=== PATIENT | male | born 1960 | race Caucasian/White ===

== ENCOUNTER → 2017-03-12 | Outpatient (REF) | payer MEDICAID ==
[2017-03-12 19:40] LABS: ALBUMIN 3.7 GM/DL (3.2-5.2); ALKALINE PHOSPHATASE 56 U/L (45-117); ALT/SGPT 33 U/L (12-78); ANION GAP 9 MEQ/L (8-16); AST/SGOT 21 U/L (15-37); BILIRUBIN,TOTAL 0.4 MG/DL (0.2-1.0); BLOOD UREA NITROGEN 19 MG/DL (7-18); CALCIUM LEVEL 8.4 MG/DL (8.5-10.1); CARBON DIOXIDE LEVEL 29 MEQ/L (21-32); CHLORIDE LEVEL 99 MEQ/L (98-107); CHOLESTEROL LEVEL 130 MG/DL (<200); CREATININE FOR GFR 1.09 MG/DL (0.70-1.30); GLOMERULAR FILTRATION RATE > 60.0 (>56); GLUCOSE, FASTING 161 MG/DL (70-105); POTASSIUM SERUM 3.8 MEQ/L (3.5-5.1); SODIUM LEVEL 137 MEQ/L (136-145); TOTAL PROTEIN 7.4 GM/DL (6.4-8.2); TRIGLYCERIDES LEVEL 249 MG/DL (<150)
== END ==
LOC: M SFHCPLAZ 15:18
PROVIDERS: ATTEND Physician Assistant
DX: I10 Essential (primary) hypertension (principal); E78.4 Other hyperlipidemia; E55.9 Vitamin D deficiency, unspecified

== ENCOUNTER → 2017-03-21 | Outpatient (REF) | payer MEDICAID ==
[~2017-03-21] MED LIST: ADV250INH INH; ALBU17IN2 INH; AMLO5TAB2 PO; ASPI81TA21 PO; ATOR80TA59 PO; DRIS50002 PO; FENO145T PO; OMEP40CA2 PO; RAMI10CA PO; RANI150T PO; XARE20TA PO
[2017-03-21 16:38] LABS: ANION GAP 7 MEQ/L (8-16); BLOOD UREA NITROGEN 11 MG/DL (7-18); CALCIUM LEVEL 9.4 MG/DL (8.5-10.1); CARBON DIOXIDE LEVEL 30 MEQ/L (21-32); CHLORIDE LEVEL 99 MEQ/L (98-107); CREATININE FOR GFR 1.18 MG/DL (0.70-1.30); GLOMERULAR FILTRATION RATE > 60.0 (>56); GLUCOSE, FASTING 98 MG/DL (70-105); POTASSIUM SERUM 4.2 MEQ/L (3.5-5.1); SODIUM LEVEL 136 MEQ/L (136-145)
== END ==
LOC: M SFHCPLAZ 13:19
PROVIDERS: ATTEND Physician Assistant
DX: R73.9 Hyperglycemia, unspecified (principal)

== ENCOUNTER 2017-05-04 17:22 | Inpatient (IN) | payer MEDICAID, OTHER ==
[~2017-05-04] VITALS: Ht 167.6 cm; Wt 64.9 kg
[2017-05-04] MEDS ORDERED: NS 500 ML IV ONE (17:30)
[2017-05-04 17:49] LABS: ABG BASE EXCESS -3.7 (-2.0-2.0); ABG HCO3 20.2 MEQ/L (22.0-26.0); ABG PARTIAL PRESSURE CO2 33.6 mmHg (35.0-45.0); ABG PARTIAL PRESSURE O2 68.6 mmHg (75.0-100.0); ABG STANDARD HCO3 21.2 MEQ/L (22.0-26.0); ABG TOTAL CO2 21.2 MEQ/L (22.0-29.0); ABG pH (ARTERIAL) 7.397 UNITS (7.350-7.450)
[2017-05-04 17:52] LABS: BASO # 0.1 K/mm3 (0.0-0.2); BASO % 0.5 % (0.0-1.0); EOS # 0.1 K/mm3 (0.0-0.50); EOS % 0.7 % (0.0-3.0); LARGE UNSTAINED CELL # 0.5 K/mm3 (0.0-0.4); LARGE UNSTAINED CELL % 4.1 % (0.0-4.0); LYMPH # 1.5 K/mm3 (1.5-4.5); LYMPH % 7.3 % (24.0-44.0); MEAN CORPUSCULAR HEMOGLOBIN 28.5 pg (27.0-33.0); MEAN CORPUSCULAR HGB CONC 31.3 g/dl (32.0-36.5); MONO # 1.3 K/mm3 (0.0-0.8); NEUTROPHILS % 77.5 % (36.0-66.0); PLATELET COUNT, AUTOMATED 143 k/mm3 (150-450); RED CELL DISTRIBUTION WIDTH 15.9 % (11.5-14.5); WHITE BLOOD COUNT 12.9 K/mm3 (4.0-10.0)
[2017-05-04 17:57] LABS: INR 1.21
[2017-05-04] MEDS ORDERED: ASPIRIN 600 MG SUPP PR STA (18:13)
[2017-05-04 18:17] LABS: METHADONE URINE NEGATIVE (NEGATIVE)
[2017-05-04 18:18] LABS: ALBUMIN 3.8 GM/DL (3.2-5.2); ALBUMIN/GLOBULIN RATIO 0.73 (1.00-1.93); ALT/SGPT 40 U/L (12-78); ANION GAP 13 MEQ/L (8-16); AST/SGOT 62 U/L (15-37); BILIRUBIN,DIRECT 0.4 MG/DL (0.0-0.2); BILIRUBIN,TOTAL 0.9 MG/DL (0.2-1.0); BLOOD UREA NITROGEN 125 MG/DL (7-18); CALCIUM LEVEL 9.6 MG/DL (8.5-10.1); CARBON DIOXIDE LEVEL 22 MEQ/L (21-32); CHLORIDE LEVEL 107 MEQ/L (98-107); CREATININE FOR GFR 3.23 MG/DL (0.70-1.30); GLOMERULAR FILTRATION RATE 21.2 (>56); GLUCOSE, FASTING 128 MG/DL (70-105); POTASSIUM SERUM 4.9 MEQ/L (3.5-5.1); SODIUM LEVEL 142 MEQ/L (136-145)
[2017-05-04] MEDS: NS 1,000 ML IV SCH (18:18)
[2017-05-04] MEDS ORDERED: ASPIRIN 300 MG SUPP PR STA (18:23)
[2017-05-04 18:30] LABS: ALKALINE PHOSPHATASE 53 U/L (45-117)
[2017-05-04] MEDS ORDERED: MANNITOL 25% 12.5 GM/50 ML VIAL (J2150) IV ONE (18:30)
--- NOTE | 2017-05-04 19:00 | REPUSA ---
CLINICAL HISTORY: Altered mental status. COMPARISON: 06/28/2009. TECHNIQUE: Multiple axial, coronal, sagittal CT images were obtained through brain without IV contra st material. COMMENTS: Note is made of an old infarct involving the right posterior parietal lobe which was seen on the prio r study. On the current study there are multiple new hypodense parenchymal areas since the prior study , most compatible with subacute infarcts. There is extensive hypodense area in right frontoparietal lobe trevor suring approximately 10 x 5 cm consistent with subacute infarct. There is apparent vasogenic edema w ith compression of right lateral ventricle. There is a 2 mm midline shift to the left. There is alexandru dence of dense right MCA sign which is compatible with subacute ischemic infarction. In addition there are multiple focal hypodense areas in the left parietal and frontal lobes. The lef t lateral ventricle is non-compressed. The study shows normal configuration of sella turcica. There are no intra or extra-axial collections. There is no evidence of hematoma formation. No hydro cephalus is present. No abnormal calcifications are present. IMPRESSION: 1. Old infarction involving the right posterior parietal lobe. 2. Subacute extensive infarct involving bilateral frontoparietal lobes as above. 3. Vasogenic edema on the right with compression on the right lateral ventricle. 2 mm midline shift to the left. 4. Consider additional evaluation with MRI. Discussed with ANALYTICAL SCIENCES DIRECTOR who immediately communicated results to Dr Cruz at 6:30 pm EST
[2017-05-04] MEDS ORDERED: dexameTHASONE 20 MG/5 ML VIAL (J1100) IV ONE (19:15)
[2017-05-04 19:34] LABS: OSMOLALITY SERUM 358 MOSM/KG (275-295)
[2017-05-04] MEDS ORDERED: cefTRIAXone SOD 1 GM in D5W MINI-BAG PLUS 50 ML IV ONE (20:15)
[2017-05-04] MEDS ORDERED: AZITHROMYCIN INJ 500 MG, VIAL MATE ADAPTER 1 EACH in D5W 250 ML IV ONE (20:15)
--- NOTE | 2017-05-04 20:20 | REPUSA ---
HISTORY: Pain and swelling. Rule out deep venous thrombosis. TECHNIQUE: Realtime sonographic images were obtained in multiple projections. FINDINGS: There is evidence of echogenic material in the left common/superficial femoral, profunda and poplite al veins with limited flow and compressibility compatible with acute DVT. The right segments including right common femoral, superficial femoral, profunda and popliteal veins demonstrate normal echo-free lumen, compressibility and flow. IMPRESSION: Findings compatible with extensive acute DVT on the left. MANJULA Espitia was informed at the conclusion of examination. Thank you for your kind referral of this patient.
[2017-05-04] MEDS ORDERED: ATROPINE SULFATE 1% OP SOLN 2 ML BTL SL PRN (21:45)
[2017-05-04] MEDS ORDERED: LORazepam 2 MG/ML VIAL (J2060) IV PRN (21:45)
[2017-05-04] MEDS ORDERED: SCOPOLAMINE 1.5 MG TRANSDERMAL TD PRN (21:45)
[2017-05-04] MEDS ORDERED: MORPHINE 2 MG/ML 1ML SYRINGE IV PRN (21:45)
[2017-05-04] MEDS ORDERED: OMEP40CA2 PO (22:09)
[2017-05-04] MEDS ORDERED: AMLO5TAB2 PO (22:09)
[2017-05-04] MEDS ORDERED: ALBU17IN2 INH (22:09)
[2017-05-04] MEDS ORDERED: XARE20TA PO (22:09)
[2017-05-04] MEDS ORDERED: DRIS50002 PO (22:09)
[2017-05-04] MEDS ORDERED: RANI150T PO (22:09)
[2017-05-04] MEDS ORDERED: ATOR80TA59 PO (22:09)
[2017-05-04] MEDS ORDERED: ASPI81TA21 PO (22:09)
[2017-05-04] MEDS ORDERED: ADV250INH INH (22:09)
[2017-05-04] MEDS ORDERED: FENO145T PO (22:09)
[2017-05-04] MEDS ORDERED: RAMI10CA PO (22:09)
--- NOTE | 2017-05-04 23:08 | HPE ---
DATE OF ADMISSION: 05/04/2017 PRIMARY CARE PROVIDER: KIRSTIN Coleman. CHIEF COMPLAINT: Unresponsive. HISTORY OF PRESENTING ILLNESS: 56-year-old male with history of alcohol abuse, factor V Leiden mutation on chronic Xarelto, who has chronic right lower extremity deep venous thrombosis (DVT) and extensive acute DVT on the left lower extremity, presents to the emergency room (ER), brought in by family due to unresponsiveness, via emergency medical services (EMS). Patient last spoke with his family about a week ago. Appeared to be doing well. No complaints of chest pain, pressure or tightness, nausea, vomiting, dizziness, lightheadedness, lower extremity edema, lower extremity pain, upper or lower extremity weakness or paresthesias, was drinking with his buddies on Friday. At that time, friends said he had fallen. They picked him up, put him on his couch in his apartment. He had episodes of apnea where he had slow breaths and then resumed normal breathing. At that time, they thought that he had passed out from drinking and left him in the apartment. According to the family, home care nurse came in today and found him unresponsive prompting EMS to be called and patient to be brought in to the emergency room. In the ER, he was found to have extensive infarct involving bilateral frontoparietal lobes approximately 10 x 5 cm consistent with subacute infarct and vasogenic edema and compression of the right lateral ventricle and a 2 mm midline shift to the left. There was evidence of a dense right MCA sign, which is compatible with subacute ischemic infarction with multiple focal hypodense areas in left parietofrontal lobes. Left lower extremity was imaged, which showed a large extensive DVT on the left. Right segments demonstrate normal echo free lumen, compressibility and flow. At this time, patient's family was informed of acute findings. He was initially given aspirin per rectum due to his CVA. Intravenous (IV) saline normal bolus 1 liter. Decadron 6 mg intravenously for vasogenic edema and mannitol 50 grams intravenously, ceftriaxone and azithromycin by the emergency room; however, family have decided that the patient would not want further treatment. Therefore, patient has been made comfort measures only, DO NOT RESUSCITATE, DO NOT INTUBATE. Medical Orders for Life-Sustaining Treatment (MOLST) form was signed by Dr. Magaly Villa, emergency room physician. Hospitalist service was called for admission for comfort measures only with patient's family in agreement and present at bedside. PAST MEDICAL HISTORY: 1. Chronic obstructive pulmonary disease (COPD). 2. DVT. 3. Alcohol abuse. 4. Hypertension. 5. Prostate cancer status post radical prostatectomy. 6. Penile implant and urine incontinence. 7. Right hilar pulmonary nodule. 8. Recurrent DVT right femoral vein through popliteal venous level. 9. Factor V Leiden heterozygote on chronic Xarelto. 10. 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 11. 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 12. Left subclavian occlusion. 13. Moderate carotid stenosis bilaterally per MRA, followed by vascular surgery. 14. Vitamin D deficiency. 15. Echocardiogram 2010 ejection fraction 65%, normal echocardiogram, no structural abnormality. 16. 2012 NST left ventricular ejection fraction 75%, normal wall motion. 17. Hyperlipidemia. 18. Tobacco use. 19. Reflux disease. ALLERGIES: No known drug allergies. SURGICAL HISTORY: 1. Transrectal resection of the prostate times two 2010. 2. Radical prostatectomy 2010. 3. Penile implant 2010. 4. Right iliac stent placement. 5. Arterial stent December 2015. HOME MEDICATIONS: Unknown. SOCIAL HISTORY: Lives alone in his apartment. Previous smoker, alcohol abuse. FAMILY HISTORY: Mother with a stroke. Sister with blood clots. REVIEW OF SYSTEMS: Unable to be obtained due to unresponsiveness, obtundation. PHYSICAL EXAMINATION: Temperature 97.6, pulse 102-117, respiratory rate 22, blood pressure 157/81, 95% on 2 liters nasal cannula. Generally, patient is obtunded. Pupils are dilated. Withdraws to pain. No purposeful movements. Neck is supple. No thyromegaly. No jugular venous distention. Lungs are clear to auscultation. No wheezing, rales or rhonchi. Heart: S1, S2, sinus tachycardia. Abdomen is soft, nontender, nondistended. Positive bowel sounds. Extremities: Left lower extremity larger than the right. Neurologically, patient withdraws to painful stimuli. Completely obtunded. Positive Babinski bilaterally. Unable to assess full function as patient is unresponsive. LABORATORY DATA: White count 12.9, hemoglobin 14, hematocrit 47, platelet count 143. Sodium 142, potassium 4.9, chloride 107, bicarbonate 22, BUN 125, creatinine 3.23, glucose 128, osmolarity 358, lactic acid 1.8, calcium 9.6, total bilirubin 0.9, direct bilirubin 0.4, AST 62, ALT 40, alkaline phosphatase 53, ammonia 23, total CK 1903, MB fraction 2.7, troponin 0.14, CRP 29, total protein 9, albumin 3.8, TSH 2.04. Microbiology: Urine and blood cultures obtained. Urinalysis: Trace leukocyte esterase, 9 WBCs, negative nitrite, 1+ bacteria. Urine toxicology positive for opiates. IMAGING STUDIES: Dopplers of the lower extremity bilaterally show a left acute extensive DVT in the left common superficial femoral profunda popliteal vein. Right has no DVT. CT of the head shows extensive bilateral frontoparietal CVA, old infarct in the right posteroparietal lobe, subacute extensive infarct involving bilateral frontoparietal lobe, vasogenic edema on the right with compression of the right lateral ventricle and a 2 mm midline shift to the left. ASSESSMENT AND PLAN: This is a 56-year-old male with history of factor V Leiden mutation, previous right-sided deep venous thrombosis (DVT) and CVA in the right MCA distribution on chronic Xarelto, pulmonary nodule, hypertension, chronic obstructive pulmonary disease (COPD), prostate cancer, alcohol abuse, left subclavian occlusion, moderate carotid artery stenosis, was brought in due to unresponsiveness and was found to have a subacute bilateral frontoparietal CVA with vasogenic edema on the right, compression of the right lateral ventricle and a 2 mm midline shift to the left, as well as an acute left lower extremity extensive DVT. Patient had been out drinking with his friends on Friday, had episodes of apnea, was left alone from Friday into today and was found unresponsive at his home, brought in by ambulance to the emergency room, was found to have the following issues. Patient will be admitted as an inpatient for two midnights, assigned to [facility] for the following acute issues for comfort measures only, DO NOT RESUSCITATE, DO NOT INTUBATE. 1. Subacute bilateral frontoparietal CVA with vasogenic edema, midline shift. Patient had received mannitol, Decadron, but per the family and patient's wishes patient has been made comfort measures only, DO NOT RESUSCITATE, DO NOT INTUBATE. He will be admitted to a medical/surgical floor. Family at the bedside. Patient and family services (PFS) has been consulted for hospice care. Comfort measures only. Medications with Ativan, atropine, scopolamine and intravenous morphine for comfort. 2. Acute large extensive left lower extremity DVT with history of factor V Leiden mutation. Patient was on chronic Xarelto, but had been drinking on Friday and most likely has not taken medications after the acute event. Currently with a large DVT. Comfort measures only per the family. Therefore, comfort measures only medications Ativan, morphine, atropine, scopolamine. 3. History of COPD with pulmonary nodule, chronic. No acute decompensation. Supportive care and comfort measures only. 4. 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 Patient is currently comfort measures only. 5. Moderate carotid stenosis bilaterally per MRA. Previously followed by vascular surgery. Currently comfort measures only. 6. Vitamin D deficiency. 7. Hypertension. Stable. 8. Alcohol abuse. Chronic. 9. Acute Metabolic encephalopathy secondary to subacute bilateral frontoparietal CVA. 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 CODE STATUS: Patient is DO NOT RESUSCITATE, DO NOT INTUBATE. Patient will be signed out to Dr.Jack Pulliam at 0700am 05/05/17. [facility]ALTH[facility]uan Diego
[2017-05-05 00:20] VITALS: BP 88/54
[2017-05-05] MEDS: NS 1,000 ML IV SCH (01:41)
--- NOTE | 2017-05-05 07:37 | REP ---
Portable chest, 05:50 p.m., single AP view, the patient semi upright: Comparison is 11/16/2015. Lung brown are clear. Cardiac size is normal. The ankush, mediastinum, and bony thorax are unremarkable. There is calcific pleural plaque overlying the dome of the right hemidiaphragm. Impression: There are no acute cardiopulmonary findings. Signed by Fredy Forrester MD 05/05/2017 07:28 A
--- NOTE | 2017-05-05 09:52 | IPNPDOC ---
Subjective Date Seen The patient was seen on 05/05/17. Subjective Chief Complaint/HPI The patient is a 56-year-old male admitted with a reason for visit of CVA. General: Reports: ROS Unobtainable Objective Physical Examination Neck Exam: Positive: Supple Chest Exam: Positive: Rhonchi (minimal diffuse rhonchi, mostly transmitted noise from upper airway) Heart Exam: Positive: Regular Rhythm, Negative: Murmurs Abdomen Exam: Positive: Normal bowel sounds, Soft, Negative: Tenderness, Hepatospenomegaly Skin Exam: Positive: Other skin issue (coccygeal pressure sore from immobility for days) Neuro Exam: Positive: Other (unresponsive to voice or non-painful tactile stimulus) Psych Exam: Positive: Other Assessment /Plan Problems (1) CVA (cerebral vascular accident) Status: Acute Response to Treatment: Stable Problem Text: Patient down for prolonged period. Comatose. After discussion with family, Hospitalist initiated DNR/INDUSTRIAL ECONOMICS TEACHER status and Hospice consulted. He appears to be in no distress at this time. Anticipate meds will be needed for comfort as status deteriorate Plan/VTE VTE Prophylaxis Ordered?: No VTE Exclusion Pharmacological: Other (INDUSTRIAL ECONOMICS TEACHER) Plan/Urinary Catheter Reason for insertion/continuin: Critical Pt monitoring Plan IVF: Discontinue Anticipated Discharge: Hospice VS, I&O, 24H, Fishbone Vital Signs/I&O Vital Signs Date Time Temp Pulse Resp B/P (MAP) Pulse Ox O2 Delivery O2 Flow Rate FiO2 05/05/17 00:20 97.3 89 18 88/54 (65) 90 Nasal Cannula 4.0 I&O- Last 24 Hours up to 6 AM 05/05/17 05:59 Intake Total 1050 ml Output Total 1350 ml Balance -300 ml Laboratory Data 24H LABS Laboratory Tests 2 05/04/17 17:25: Bedside Glucose (Misc Panel) 121H 05/04/17 17:29: White Blood Count 12.9H, Red Blood Count 5.20, Hemoglobin 14.8, Hematocrit 47.3 , Mean Corpuscular Volume 91.0, Mean Corpuscular Hemoglobin 28.5, Mean Corpuscular Hemoglobin Concent 31.3L, Red Cell Distribution Width 15.9H, Platelet Count 143L, Neutrophils (%) (Auto) 77.5H, Lymphocytes (%) (Auto) 7.3L, Monocytes (%) (Auto) 10.0H, Eosinophils (%) (Auto) 0.7, Basophils (%) (Auto) 0.5 , Neutrophils # (Auto) 10.0H, Lymphocytes # (Auto) 1.5, Monocytes # (Auto) 1.3H , Eosinophils # (Auto) 0.1, Basophils # (Auto) 0.1, Large Unclassified Cells % 4.1H, Large Unclassified Cells # 0.5H, Prothrombin Time 15.5H, Prothromb Time International Ratio 1.21, Activated Partial Thromboplast Time 26.6L, Blood Gas Bicarbonate Standard 21.2L, Arterial Blood pH 7.397, Arterial Blood Partial Pressure CO2 33.6L, Arterial Blood Partial Pressure O2 68.6L, Arterial Blood Total CO2 21.2L, Arterial Blood HCO3 20.2L, Arterial Blood Base Excess -3.7L, Arterial Blood Oxygen Saturation 91.3L, Anion Gap 13, Glomerular Filtration Rate 21.2L, Osmolality 358H, Lactic Acid Level 1.8, Calcium Level 9.6, Aspartate Amino Transf (AST/SGOT) 62H, Alanine Aminotransferase (ALT/SGPT) 40, Alkaline Phosphatase 53, Total Bilirubin 0.9, Direct Bilirubin 0.4H, Ammonia 23 , Total Creatine Kinase 1903H, Creatine Kinase MB 2.7, Creatine Kinase MB Relative Index 0.14, Troponin I 0.14H, C-Reactive Protein, Quantitative 29.40H, Total Protein 9.0H, Albumin 3.8, Albumin/Globulin Ratio 0.73L, Thyroid Stimulating Hormone (TSH) 2.040, Salicylates Level 3.4L, Acetaminophen Level < 2.0L, Ethyl Alcohol Level 0.003 05/04/17 17:45: Urine Appearance HAZY, Urine Color YELLOW, Urine pH 5.0, Urine Specific [place] 1.019, Urine Protein NEGATIVE, Urine Glucose (UA) NEGATIVE, Urine Ketones NEGATIVE, Urine Urobilinogen 0.2, Urine Bilirubin NEGATIVE, Urine Leukocyte Esterase TRACEH, Urine Blood NEGATIVE, Urine Nitrite NEGATIVE, Urine WBC (Auto) 9H, Urine RBC (Auto) 0, Urine Hyaline Casts (Auto) 24, Urine Bacteria (Auto) 1+H , Urine Squamous Epithelial Cells 1, Urine Mucus (Auto) SMALL, Urine Sperm (Auto ) , Urine Amphetamines Screen NEGATIVE, Urine Benzodiazepines Screen NEGATIVE, Urine Opiates Screen POSITIVEH, Urine Methadone Screen NEGATIVE, Urine Barbiturates Screen NEGATIVE, Urine Phencyclidine Screen NEGATIVE, Urine Cocaine Metabolite Screen NEGATIVE, Urine Cannabinoids Screen NEGATIVE CBC/BMP Laboratory Tests 05/04/17 17:29 Red Blood Count 5.20, Mean Corpuscular Volume 91.0, Mean Corpuscular Hemoglobin 28.5, Mean Corpuscular Hemoglobin Concent 31.3 L, Red Cell Distribution Width 15.9 H, Neutrophils (%) (Auto) 77.5 H, Lymphocytes (%) (Auto) 7.3 L, Monocytes ( %) (Auto) 10.0 H, Eosinophils (%) (Auto) 0.7, Basophils (%) (Auto) 0.5, Neutrophils # (Auto) 10.0 H, Lymphocytes # (Auto) 1.5, Monocytes # (Auto) 1.3 H , Eosinophils # (Auto) 0.1, Basophils # (Auto) 0.1 Microbiology Microbiology 05/04/17 Blood Culture, Received Pending 05/04/17 Blood Culture, Received Pending 05/04/17 Urine Culture, Received Pending Wilbert Pulliam MD May 05, 2017 09:47
--- NOTE | 2017-05-05 20:21 | ECGEPIP ---
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
--- NOTE | 2017-05-06 09:11 | IPNPDOC ---
Subjective Date Seen The patient was seen on 05/06/17. Subjective Chief Complaint/HPI The patient is a 56-year-old male admitted with a reason for visit of CVA. General: Reports: ROS Unobtainable Objective Physical Examination General Exam: Positive: No Acute Distress Eye Exam: Negative: Sclera icteric Neck Exam: Positive: Supple Chest Exam: Positive: Clear to auscultation, Normal air movement Heart Exam: Positive: Regular Rhythm, Negative: Murmurs Abdomen Exam: Positive: Normal bowel sounds, Soft, Negative: Tenderness, Hepatospenomegaly Skin Exam: Positive: Other skin issue (coccygeal pressure sore from immobility for days) Neuro Exam: Positive: Other (unresponsive to voice or non-painful tactile stimulus) Psych Exam: Positive: Other Assessment /Plan Problems (1) CVA (cerebral vascular accident) Status: Acute Response to Treatment: Stable Problem Text: Patient down for prolonged period. Comatose. After discussion with family, Hospitalist initiated DNR/EMERGENCY DEPARTMENT MANAGER status and Hospice consulted. He appears to be in no distress at this time. Anticipate meds will be needed for comfort as status deteriorate (2) Coma Status: Acute Response to Treatment: Improving Problem Text: opening eyes but no response to verbal or tactile stimuli: GCS=6 (3) Rhabdomyolysis Status: Acute Discussed With: Nurse Problem Text: EMERGENCY DEPARTMENT MANAGER, no further testing indicated. (4) Acute renal failure due to rhabdomyolysis Status: Acute Problem Text: EMERGENCY DEPARTMENT MANAGER (5) Vasogenic cerebral edema Status: Acute Problem Text: resulting in COMA, as above. Plan/VTE VTE Prophylaxis Ordered?: No VTE Exclusion Pharmacological: Other (EMERGENCY DEPARTMENT MANAGER) Plan/Urinary Catheter Reason for insertion/continuin: Critical Pt monitoring Plan IVF: Discontinue Anticipated Discharge: Hospice Advance Directives: DNR VS, I&O, 24H, Fishbone Vital Signs/I&O Vital Signs Date Time Temp Pulse Resp B/P (MAP) Pulse Ox O2 Delivery O2 Flow Rate FiO2 05/05/17 21:00 Room Air 05/05/17 09:45 4.0 05/05/17 00:20 97.3 89 18 88/54 (65) 90 I&O- Last 24 Hours up to 6 AM 05/06/17 05:59 Intake Total 0 ml Output Total 1100 ml Balance -1100 ml Laboratory Data Microbiology Microbiology 05/04/17 Blood Culture - Preliminary, Resulted No growth after 24 hours . All specim... 05/04/17 Blood Culture - Preliminary, Resulted No growth after 24 hours . All specim... 05/04/17 Urine Culture - Final, Complete Wilbert Pulliam MD May 06, 2017 09:11
--- NOTE | 2017-05-09 08:19 | DSES ---
DATE OF ADMISSION: 05/04/2017 DATE OF DISCHARGE: 05/07/2017 Mr. Maher was admitted by the hospitalist service on 05/04/2017. He is a 56-year-old male with history of alcohol abuse, factor V Leiden on chronic Xarelto, who has chronic right ability vein thrombosis, extensive DVT on the left lower extremity. He was brought into the emergency department by family with complaint of unresponsiveness via an emergency medical services (EMS) transport. Last seen by family approximately a week ago and appeared to be doing well at that time. Apparently he was consuming alcohol with friends on Friday before admission. Apparently some time that evening he had fallen, his friend picked him up and put him on his couch in his apartment. He apparently had experienced episodes of apnea and then resumed normal breathing. His friend thought that he had become unconscious from drinking and left him in the apartment. Home care nurse came to provide service on May 04 and found him in the apartment and he was brought to hospital. In the emergency room, he was found to have an extensive infarct involving bilateral frontoparietal lobes, 10 x 5 cm, consistent with subacute infarct and vasogenic edema with compression of right lateral ventricle and 2 mm midline shift. The family was informed of his status. The patient was treated initially with Decadron, mannitol, antibiotics and family, with discussion with the admitting internal medicine service, decided upon comfort care. PAST MEDICAL HISTORY: His past medical history included chronic obstructive pulmonary disease (COPD), DVT, alcohol abuse, prostate cancer status post radical prostatectomy, factor V Leiden heterozygote on chronic Xarelto, old parietal stroke, left subclavian occlusion, moderate carotid stenosis bilaterally followed by qa analyst and tobacco abuse. FINDINGS ON ADMISSION: Included evidence of come, Isabella coma scale is 6 on the day prior to his demise. He was opening his eyes but not in a purposeful way in response to verbal stimuli but spontaneous. No other response noted. LABORATORY FINDINGS: At admission, including the neurologic, anatomic findings demonstrated the he also has an elevated white count 12,900. He had evidence of rhabdomyolysis with CPK of 1903. He had significant increase in his creatinine to 3.23, evidence of acute renal failure with BUN of 125. The patient was kept comfortable. He appeared to be in no distress throughout his hospital stay. He had appropriate nursing care with frequent turning instituted and this morning he of the disease process. DISCHARGE DIAGNOSIS: 1. Stroke resulting in come from vasogenic cerebral edema related to stroke. Also resulting in midline shift. 2. Rhabdomyolysis with acute renal failure. 3. Chronic conditions as listed above. due to ongoing disease process secondary to the stroke and respiratory failure. No autopsy requested.
== END 2017-05-07 07:00 | disposition expired | DRG 45 ==
LOC: M ED 17:22 → M ED INP 21:36 → M MS5PR 05-05 00:14
PROVIDERS: ADMIT General Practice; ATTEND Family Medicine
DX: I63.9 Cerebral infarction, unspecified (principal); R40.20 Unspecified coma; G93.6 Cerebral edema; N17.9 Acute kidney failure, unspecified; D68.2 Hereditary deficiency of other clotting factors; M62.82 Rhabdomyolysis; I82.812 Embolism and thrombosis of superficial veins of left lower extremity; Z66 Do not resuscitate; Z51.5 Encounter for palliative care; E78.5 Hyperlipidemia, unspecified; F10.10 Alcohol abuse, uncomplicated; I10 Essential (primary) hypertension; J44.9 Chronic obstructive pulmonary disease, unspecified; Z79.01 Long term (current) use of anticoagulants; Z85.46 Personal history of malignant neoplasm of prostate; Z86.73 Personal history of transient ischemic attack (TIA), and cerebral infarction without residual deficits; Z95.9 Presence of cardiac and vascular implant and graft, unspecified; Z87.891 Personal history of nicotine dependence